=== PATIENT | male | born 1950 | race Caucasian/White ===

== ENCOUNTER 2021-08-11 12:35 | Emergency (ER) | payer MEDICARE, MEDICAID, SELFPAY ==
[2021-08-11 12:46] VITALS: BP 148/74; PULSE 71; RESP 16; TEMP 36.1; O2SAT 100
--- NOTE | 2021-08-11 12:50 | ED.SKABFB ---
HPI - Skin/Abscess/Foreign Bdy General Chief complaint: Skin/Abscess/Foreign Body Stated complaint: rash Time Seen by Provider: 08/11/21 12:55 Source: patient and RN notes reviewed Mode of arrival: ambulatory Limitations: no limitations History of Present Illness HPI narrative: 70-year-old male presents with concern for 1-1/2-week history of rash. Reports the rash started on his arms after pulling weeds. Reports the rash spread to the legs and torso. Reports he has since had a red, warm, itchy and tender area on his torso. He denies swollen lips, swollen tongue, trouble breathing, fever. Reports he has been using hydrocortisone cream and alcohol in the rash. MD complaint: rash Related Data Home Medications Medication Instructions Recorded Confirmed amlodipine 08/11/21 aspirin 81 mg PO DAILY 08/11/21 08/11/21 atorvastatin 08/11/21 fluticasone furoate-vilanterol INHALATION 08/11/21 [Breo Ellipta] ipratropium-albuterol [Combivent INHALATION 08/11/21 Respimat] lisinopril 08/11/21 metformin mg 08/11/21 nebivolol [Bystolic] mg 08/11/21 omeprazole 08/11/21 Allergies Allergy/AdvReac Type Severity Reaction Status Date / Time No Known Allergies Verified 10/26/19 22:59 Review of Systems Review of Systems: CONSTITUTIONAL: Denies malaise, chills, sweats, or fever. EYES: Denies visual changes, redness, or discharge. ENT: Denies rhinorrhea, congestion, sinus pain, otalgia or sore throat. CARDIOVASCULAR: Denies chest pain, palpitations, or edema. RESPIRATORY: Denies cough or dyspnea. Skin: Reports itchy rash to the arms and legs and abdomen. Reports red, warm, itchy, slightly tender area on the abdomen. All systems reviewed & are unremarkable except as noted in HPI and below PMFSH Past Medical History Medical History (Updated 08/11/21 @ 13:04 by Isabel Cullen NP) Cardiac defibrillator in place Diabetes Leg fracture Tibia Pacemaker Shoulder fracture Surgical History Surgical History History of inguinal hernia repair Social History Social History Smoking status: Never smoker Alcohol intake: current Gender identity (if verbalized by the patient): Male Comments At time of signature, agree with nursing past medical, surgical, social and family history. There is no relevant family history pertinent to the presenting complaint Exam Narrative: GENERAL: Well-appearing, well-nourished, and in no acute distress. HEAD: Normocephalic, atraumatic. EYES: PERRLA, conjunctivae clear, and EOMI. ENT: Mucous membranes moist. Oropharynx without edema, erythema or lesions. NECK: Supple. No lymphadenopathy CHEST: Clear to auscultation. No respiratory distress. HEART: Regular rate and rhythm. SKIN: Warm, dry. Papular rash and later stages of healing noted to bilateral arms and abdomen. Approximately 20 cm in diameter area of erythema, mild warmth without induration noted to the left abdomen consistent with erysipelas NEURO: Alert and oriented x3. PSYCH: Normal mood and affect Course Course Emergency Course: Patient is aware of diagnosis, understands and agrees to treatment plan. Anticipatory guidance given. Patient agrees to follow-up as directed and is aware of reasons to seek care at the emergency department. Portions of this record may have been created with voice recognition software Vital Signs Vital signs: Vital Signs Temperature 97.0 F L 08/11/21 12:46 Pulse Rate 71 08/11/21 12:46 Respiratory Rate 16 08/11/21 12:46 Blood Pressure 148/74 H 08/11/21 12:46 Pulse Oximetry 100 08/11/21 12:46 Temperature 97.0 F L 08/11/21 12:46 Pulse Rate 71 08/11/21 12:46 Respiratory Rate 16 08/11/21 12:46 Blood Pressure 148/74 H 08/11/21 12:46 Pulse Oximetry 100 08/11/21 12:46 Reviewed. Patient has history of hypertension MDM - Skin/Abscess/Foreign Bdy
[2021-08-11 13:02] VITALS: BP 148/74; PULSE 71; RESP 16; TEMP 36.1; O2SAT 100
== END 2021-08-11 13:07 | disposition home or self-care (01) ==
PROVIDERS: Emergency Provider Nurse Practitioner
DX: A46 Erysipelas (principal); L25.5 Unspecified contact dermatitis due to plants, except food; Z95.810 Presence of automatic (implantable) cardiac defibrillator; E11.9 Type 2 diabetes mellitus without complications
CPT/HCPCS: 99213; G0463

== ENCOUNTER 2022-05-04 09:56 | Outpatient (CLI) | payer MEDICARE, MEDICAID, SELFPAY ==
--- NOTE | 2022-05-04 10:20 | ECHO_ITS ---
Patient Info Name: Simeon Rosenthal Age: 71 years : 1950 Gender: Male Ht: 68 in Wt: 185 lbs BSA: 2.03 m2 HR: 67 bpm BP: 138 / 81 mmHg Technical Quality: Good Exam Date: 05/04/2022 10:32 AM Exam Location: [facility] Patient Status: Outpatient Admit Date: 05/04/2022 Staff Ordering Physician: Jayce Parra DO Seafood Preparer: Tricia Soliman RDCS Attending Provider: Jayce Parra DO Exam Type: CA echo doppler color flow Study Info Indications I42.9 - Cardiomyopathy, unspecified Complete two-dimensional, color flow and Doppler transthoracic echocardiogram is performed. Summary 1. Complete two-dimensional, color flow and Doppler transthoracic echocardiogram is performed. 2. Left ventricular chamber dimension is normal. 3. Left ventricular systolic function is normal, estimated at 55-60%. 4. The left ventricular diastolic function is grade I diastolic dysfunction. 5. E/e' 13 is mildly elevated. 6. Linear artifact in right ventricle suggestive of catheter(s), pacemaker lead(s), or ICD lead(s). 7. Linear artifact in the right atrium suggestive of catheter(s), pacemaker lead(s), or ICD lead(s). Left Ventricle E/e' 13 is mildly elevated. Left ventricular chamber dimension is normal. Left ventricular systolic function is normal, estimated at 55-60%. The left ventricular diastolic function is grade I diastolic dysfunction. Right Ventricle Right ventricular systolic function is normal and with normal TAPSE 1.9 cm. Linear artifact in right ventricle suggestive of catheter(s), pacemaker lead(s), or ICD lead(s). Right ventricular chamber dimension is normal. Left Atria Left atrial chamber dimension is normal. Right Atria Linear artifact in the right atrium suggestive of catheter(s), pacemaker lead(s), or ICD lead(s). Right atrial chamber dimension is normal. Aortic Valve The aortic valve is trileaflet. There is no aortic valve stenosis. There is no aortic valve regurgitation. Pulmonic Valve There is no pulmonic regurgitation. Mitral Valve There is no mitral valve stenosis. There is no mitral valve regurgitation. Tricuspid Valve There is no tricuspid valve regurgitation. Pericardium/Pleural There is no pericardial effusion. Inferior Vena Cava Normal inferior vena cava with >50% collapse upon inspiration consistent with normal right atrial pressure, 5 mmHg. Aorta The aortic root size at the sinus of Valsalva is normal. Left Ventricular Outflow Tract Name Value Normal LVOT 2D LVOT Diameter 2.2 cm LVOT Doppler LVOT Peak Gradient 4 mmHg LVOT Mean Gradient 2 mmHg LVOT VTI 21 cm LVOT VTI/AV VTI Ratio 0.9 LVOT Stroke Volume 76 ml LVOT CO 5.1 l/min LVOT CI 2.5 l/min/m2 Pulmonic Valve Name Value Normal
[2022-05-04 10:49] LABS: Alanine Aminotransferase 24 U/L (6-50); Albumin Level 4.5 g/dL (3.5-5.1); Alkaline Phosphatase 76 U/L (38-126); Anion Gap 10 mmol/L (8-16); Aspartate Amino Transferase 28 U/L (17-59); Bilirubin,Total 0.6 mg/dL (0.2-1.3); Blood Urea Nitrogen 20 mg/dL (9-20); Calcium 9.6 mg/dL (8.4-10.2); Carbon Dioxide 27 mmol/L (22-30); Chloride 98 mmol/L (98-107); Cholesterol 138 mg/dL (0-200); Estimated Glomerular Filt Rate > 60; Glucose 117 mg/dL (65-110); HDL Direct 40 mg/dL; Potassium 3.6 mmol/L (3.4-5.0); Sodium 135 mmol/L (137-145); Triglycerides 92 mg/dL (<150)
[2022-05-04 10:52] LABS: INR 1.1; Prothrombin Time 13.5 Seconds (11.1-14.7)
[2022-05-04 11:00] LABS: LDL Cholesterol Direct 73 mg/dL
== END 2022-05-04 09:57 | disposition home or self-care (01) ==
LOC: ANHCARD 09:58
PROVIDERS: Visit Provider Internal Medicine Cardiovascular Disease
DX: I42.9 Cardiomyopathy, unspecified (principal); E78.5 Hyperlipidemia, unspecified
CPT/HCPCS: 36415; 80053; 80061; 85610; 93306